=== PATIENT | female | born 1955 | race Caucasian/White ===

== ENCOUNTER → 2020-04-24 | Outpatient (CLI) | payer OTHER | END | disposition home or self-care (01) | LOC: PLD 09:43 → LAB SHORT 09:43 | DX: N90.4 Leukoplakia of vulva (principal) | CPT/HCPCS: 88305; 88312 ==

== ENCOUNTER → 2020-05-28 | Outpatient (CLI) | payer OTHER | END | disposition home or self-care (01) | LOC: LAB EV 11:35 → LAB SHORT 11:35 | DX: N39.41 Urge incontinence (principal) | CPT/HCPCS: 87086 ==

== ENCOUNTER 2020-12-03 10:23 | Day surgery (SDC) | payer OTHER ==
[~2020-12-03] VITALS: Ht 157.5 cm; Wt 70.9 kg
[~2020-12-03 10:23] MED LIST: CLOP75 PO; POTA10T PO
--- NOTE | 2020-12-03 12:14 | NUR ---
12/03/20 1214 Deidre Lechuga C/O RIGHT HAND AREA PAIN WHERE IV ATTEMPT WAS. PT. VERBALIZES TOLERABLE. "JUST NEEDLE PAIN."
== END 2020-12-03 13:18 | disposition home or self-care (01) ==
LOC: ORSCSDS 10:23
PROVIDERS: Internal Medicine Gastroenterology
PROC: 0DBN8ZX Excision of Sigmoid Colon, Via Natural or Artificial Opening Endoscopic, Diagnostic (ICD-10-PCS; principal; 2020-12-03 11:45)
PROC: 0DBH8ZX Excision of Cecum, Via Natural or Artificial Opening Endoscopic, Diagnostic (ICD-10-PCS; principal; 2020-12-03 11:45)
PROC: 0DBK8ZX Excision of Ascending Colon, Via Natural or Artificial Opening Endoscopic, Diagnostic (ICD-10-PCS; principal; 2020-12-03 11:45)
DX: R19.5 Other fecal abnormalities (principal); D12.0 Benign neoplasm of cecum; D12.2 Benign neoplasm of ascending colon; D12.5 Benign neoplasm of sigmoid colon; K57.30 Diverticulosis of large intestine without perforation or abscess without bleeding; K64.1 Second degree hemorrhoids; I10 Essential (primary) hypertension; E11.9 Type 2 diabetes mellitus without complications; E03.9 Hypothyroidism, unspecified; Z79.84 Long term (current) use of oral hypoglycemic drugs; Z79.899 Other long term (current) drug therapy; I25.10 Atherosclerotic heart disease of native coronary artery without angina pectoris; E78.5 Hyperlipidemia, unspecified; Z79.01 Long term (current) use of anticoagulants
CPT/HCPCS: 88305; J2704; J7120

== ENCOUNTER 2020-12-10 14:43 | Inpatient (IN) | payer OTHER, MEDICARE ==
[~2020-12-10] VITALS: Ht 157.5 cm; Wt 73.0 kg
[2020-12-10 15:37] LABS: BASOPHILS ABSOLUTE AUTO 0.05 K/mm3 (0.00-0.23); BASOPHILS PERCENT AUTO 1 % (0-2); EOSINOPHILS ABSOLUTE AUTO 0.24 K/mm3 (0.00-0.68); EOSINOPHILS PERCENT AUTO 4 % (0-6); Hematocrit 39.8 % (33.0-51.0); Hemoglobin 13.6 g/dL (11.5-16.0); IMMATURE GRAN ABSOLUTE AUTO 0.02 K/mm3 (0.00-0.10); IMMATURE GRAN PERCENT AUTO 0 % (0-1); LYMPHOCYTES ABSOLUTE AUTO 1.68 K/mm3 (0.84-5.20); LYMPHOCYTES PERCENT AUTO 28 % (21-46); MONOCYTES ABSOLUTE AUTO 1.04 K/mm3 (0.16-1.47); MONOCYTES PERCENT AUTO 17 % (4-13); Mean Corpuscular HGB 29.6 pg (26.0-34.0); Mean Corpuscular HGB Conc 34.2 g/dL (31.5-36.5); Mean Corpuscular Volume 87 fL (80-100); Mean Platelet Volume 10.9 fL (9.1-12.4); NEUTROPHILS ABSOLUTE AUTO 3.05 K/mm3 (1.96-9.15); NEUTROPHILS PERCENT AUTO 50 % (41-73); Platelet Count 220 K/mm3 (150-400); RDW Coefficient Variation 11.9 % (11.7-14.2); RDW Standard Deviation 37.2 fL (35.1-46.3); White Blood Cell Count 6.08 K/mm3 (4.00-11.30)
[2020-12-10 15:57] LABS: Alanine Aminotransfer (ALT/SGP 42 U/L (12-78); Albumin, Blood 3.5 g/dL (3.4-5.0); Albumin/Globulin Ratio 0.9 (0.8-1.8); Alk Phos 88 U/L (50-136); Anion Gap 5 mmol/L (6-16); Aspartate Aminotrans (AST/SGOT 32 U/L (12-37); Bilirubin, Total 0.4 mg/dL (0.1-1.0); Blood Urea Nitrogen 9 mg/dL (8-24); Bun/Creatinine Ratio 11.1 (12.0-20.0); CO2, Blood 27 mmol/L (21-32); Calcium, Blood 8.4 mg/dL (8.5-10.1); Chloride, Blood 108 mmol/L (98-108); Creatinine, Blood 0.81 mg/dL (0.40-1.00); Glomerular Filtration Rate >60 (60-); Glucose, Blood 95 mg/dL (70-99); Potassium, Blood 4.3 mmol/L (3.5-5.5); Sodium, Blood 140 mmol/L (136-145); Total Protein, Blood 7.5 g/dL (6.4-8.2); Troponin I 0.355 ng/mL (0.000-0.040)
[2020-12-10 17:46] LABS: International Normalized Ratio 1.01; Prothrombin Time Results 10.9 Sec (9.7-11.5)
[2020-12-10] MEDS ORDERED: METF500 PO (18:09)
[2020-12-10] MEDS ORDERED: EUTHYROX50 MCG PO (18:09)
[2020-12-10] MEDS ORDERED: XARELTO20 MG PO (18:10)
[2020-12-10] MEDS ORDERED: VENL150ER PO (18:10)
[2020-12-10] MEDS ORDERED: ATORVASTATIN CA80 M1 PO (18:10)
[2020-12-10] MEDS ORDERED: TEMOVATE15 G1 TOP (18:12)
[2020-12-10] MEDS ORDERED: METO25ER PO (18:13)
[2020-12-10] MEDS ORDERED: PANT40 PO (18:13)
[2020-12-10] MEDS ORDERED: Prinivil10 MG PO (18:14)
[2020-12-10] MEDS ORDERED: Estrace Vagin42.5 GM VAG (18:14)
[2020-12-10] MEDS ORDERED: MOTION RELIEF25 MG PO (18:14)
[2020-12-10] MEDS ORDERED: FURO20 PO (18:15)
[2020-12-10] MEDS ORDERED: VITAMIN D31000 UNI1 PO (18:45)
[2020-12-10] MEDS ORDERED: CYAN500 PO (18:45)
--- NOTE | 2020-12-10 19:36 | NUR ---
ADMISSION FROM ED PT ARRIVED TO PCU AT APPROXIMATELY 1650. BP IS SLIGHTLY ELEVATED, PT DENIES CP AND SOB AT THIS TIME. PT ARRIVED ON HEPARIN GTT WHICH WAS VERIFIED WITH CHERYL WARREN. PT WAS ABLE TO WALK INDEPENDENTLY TO THE BATHROOM UPON ARRIVAL. PT IS HAVING DINNER IN BED AT THIS TIME
[2020-12-10 23:29] LABS: CPK Creatine Kinase 160 U/L (26-193)
--- NOTE | 2020-12-11 04:01 | NUR ---
RECORDS SUPERVISOR SUMMARY PT IS AXOX4 AND CALLS APPROPRIATELY. PT HAS DENIED ANY CP OR PRESSURE THIS SHIFT. PT HAD ELEVATED BP AT START OF SHIFT W SBP IN 170'S SO HYDRALAZINE WAS GIVEN WHICH BROUGHT SBP DOWN TO 130, BP'S HAVE REMAINED STABLE 120'S/70'S. TELE HAS SHOWN SINUS HERIBERTO IN 50'S MOST OF THE SHIFT WHICH IS NORMAL PER PATIENT. PT HAS AMBULATED W NO SOB OR PAIN. HEPARIN GTT RUUNING UNINTERUPTED ALL SHIFT. REPEAT TROPONIN CAME BACK AT 0.501, PROVIDER NOTIFIED AND INSTRUCTED TO CONTINUE MONITORING. O2 SATS >92% ON RM AIR. PT NPO SINCE 0000. SLAUGHTERER RELIGIOUS RITUAL CONSULT CALLED INTO ANSWERING SERVICE. BRAD SANTOS.
[2020-12-11 05:18] LABS: BASOPHILS ABSOLUTE AUTO 0.05 K/mm3 (0.00-0.23); BASOPHILS PERCENT AUTO 1 % (0-2); EOSINOPHILS ABSOLUTE AUTO 0.27 K/mm3 (0.00-0.68); EOSINOPHILS PERCENT AUTO 5 % (0-6); Hematocrit 36.4 % (33.0-51.0); Hemoglobin 12.6 g/dL (11.5-16.0); IMMATURE GRAN ABSOLUTE AUTO 0.01 K/mm3 (0.00-0.10); IMMATURE GRAN PERCENT AUTO 0 % (0-1); LYMPHOCYTES ABSOLUTE AUTO 1.28 K/mm3 (0.84-5.20); LYMPHOCYTES PERCENT AUTO 24 % (21-46); MONOCYTES ABSOLUTE AUTO 0.88 K/mm3 (0.16-1.47); MONOCYTES PERCENT AUTO 17 % (4-13); Mean Corpuscular HGB 29.5 pg (26.0-34.0); Mean Corpuscular HGB Conc 34.6 g/dL (31.5-36.5); Mean Corpuscular Volume 85 fL (80-100); Mean Platelet Volume 10.6 fL (9.1-12.4); NEUTROPHILS ABSOLUTE AUTO 2.78 K/mm3 (1.96-9.15); NEUTROPHILS PERCENT AUTO 53 % (41-73); Platelet Count 209 K/mm3 (150-400); RDW Coefficient Variation 11.8 % (11.7-14.2); RDW Standard Deviation 36.5 fL (35.1-46.3); Red Blood Cell Count 4.27 M/mm3 (3.80-5.20); White Blood Cell Count 5.27 K/mm3 (4.00-11.30)
[2020-12-11 07:57] LABS: Troponin I 0.566 ng/mL (0.000-0.040)
--- NOTE | 2020-12-11 08:16 | NUR ---
HEPARIN GTT HEPARIN WAS TURNED OFF AT 0815, PHARMACY NOTIFIED. PT IS PREPARING FOR ANGIOGRAM LATER TODAY 12/11/20. CONSENT SIGNED
[2020-12-11 09:58] LABS: SARS-Cov-2 (COVID-19) PCR, MMC NEGATIVE (NEGATIVE)
--- NOTE | 2020-12-11 10:13 | NUR ---
Echocardiogram completed.
--- NOTE | 2020-12-11 11:29 | NUR ---
HEART CENTER PT LEFT FOR HEART CENTER AT APPROXIMATELY 1015. PT WAS ESCORTED VIA BED BY RN Juancho GRAVES AND Avelino CYR. DR. CHAVIRA WANTED RECORDS FROM [facility] IN [place] REGARDING PT'S PREVIOUS BYPASS, I HAVE SENT THE REQUEST AND CALLED MULTIPLE TIMES BUT HAVE NOT HAD RECORDS COME THROUGH.
--- NOTE | 2020-12-11 12:05 | NUR ---
RETURN FROM ENVIRONMENTAL ATTORNEY PT CAME BACK TO PCU AT APPROXIMATELY 1208. PT HAS TR BAND IN PLACE, NO INTERVENTIONS OR STENTS WERE PLACED TODAY. NO DRAINAGE OR HEMATOMA AT THE SITE, PLAN IS MEDICAL MANAGEMENT
--- NOTE | 2020-12-11 13:10 | NUR ---
TR BAND PT HAS TR BAND IN PLACE WITH 10ML AIR. NO DRAINAGE, NO HEMATOMA, PT HAS FULL SENSATION IN THE HAND AND STRONG PULSE. VS STABLE, PT REPORTS MILD HEADACHE- MEDICATED PER EMAR WITH TYLENOL
--- NOTE | 2020-12-11 13:47 | NUR ---
TR BAND TR BAND IS IN PLACE IS THE ARM BOARD. NO DRAINAGE, NO HEMATOMA, STRONG PULSE. VS STABLE, PT DENIES CHEST PAIN AT THIS TIME
--- NOTE | 2020-12-11 14:25 | NUR ---
TR BAND 3ML OF AIR REMOVED FROM THE TR BAND. NO SIGN OF HEMATOMA, STRONG RADIAL PULSE, AND FULL SENSATION IN THE HAND. NO DRAINAGE AT THIS TIME.
--- NOTE | 2020-12-11 14:52 | NUR ---
ADDITIONALLY 3ML OF AIR REMOVED FROM TR BAND. NO DRAINAGE, NO HEMATOMA, TR BAND IN PLACE, FULL SENSATION IN THE HAND AND STRONG RADIAL PULSE
--- NOTE | 2020-12-11 15:09 | NUR ---
CARE COORDINATION REFERRAL - ADMIT: 12/10/20 DISCHARGE: DX: HTN EMERGENCY CC: NATALIA LORNA CALL: RESIDENCE: HOME WITH SPOUSE CAREGIVER: APOLINAR MORALEZ, SPOUSE/PARTNER, , VINAY BARTHOLOMEW, SISTER/FAMILY MEMBER, , GOLDEN LENORA/MAGALI PLASCENCIA, COUSINS/FAMILY MEMEBERS, DX: CAD, GERD, DEPRESSIVE, HTN, SEE LIST DME: NONE CCM: REFERRAL- 2020 HOME HEALTH: NONE SUMMARY: ADMIT: 12/10/20 12/11/20- PER CHART REVIEW WITH DR. NEWBY, PT IS TO HAVE CONSULTATION WITH CARDIOLOGY FOR NSTEMI TODAY. NO D/C PLAN AT THIS TIME. -RADHA
--- NOTE | 2020-12-11 15:11 | NUR ---
TR BAND DEFLATED- LAST 4ML OF AIR REMOVED.10 ML AIR REMOVED TOTAL. NO DRAINAGE, NO HEMATOMA, NO PAIN OR SWELLING OR REDNESS AT THE SITE. TR BAND IN PLACE.
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
--- NOTE | 2020-12-11 18:42 | NUR ---
SHIFT SUMMARY PT ARRIVED BACK FROM HEART CENTER THIS MORNING. THE TR BAND HAS SINCE BEEN REMOVED, NO DRAINAGE OR SIGN OF HEMATOMA. PT DENIES CP BUT REPORTS A HEADACHE. VS STABLE, PT ON RA. PT SBA IN THE ROOM TO THE BATHROOM. PT RESTING IN HER ROOM AT THIS TIME
--- NOTE | 2020-12-12 04:35 | NUR ---
DRAPERY HEMMER AUTOMATIC SUMMARY PT HAS DENIED ANY CP OR PRESSURE THIS SHIFT. OPSITE ON R RADIAL IS C/D/I W NO S/S OF BLEEDING OR HEMATOMA AND IS PAINLESS PER PT. VITAL SIGNS ARE WNL AND STABLE. PT HAS HERIBERTO CARDIA INTO THE HIGH 40'S WHILE SLEEPING. O2 [place] >92% ON RM AIR. PT HAS HAD VERY GOOD URINE OUTPUT THIS SHIFT. WCTM.
[2020-12-12 04:39] LABS: BASOPHILS ABSOLUTE AUTO 0.03 K/mm3 (0.00-0.23); BASOPHILS PERCENT AUTO 1 % (0-2); EOSINOPHILS ABSOLUTE AUTO 0.27 K/mm3 (0.00-0.68); EOSINOPHILS PERCENT AUTO 5 % (0-6); Hematocrit 36.5 % (33.0-51.0); Hemoglobin 12.7 g/dL (11.5-16.0); IMMATURE GRAN ABSOLUTE AUTO 0.01 K/mm3 (0.00-0.10); IMMATURE GRAN PERCENT AUTO 0 % (0-1); LYMPHOCYTES ABSOLUTE AUTO 1.26 K/mm3 (0.84-5.20); LYMPHOCYTES PERCENT AUTO 25 % (21-46); MONOCYTES ABSOLUTE AUTO 0.93 K/mm3 (0.16-1.47); MONOCYTES PERCENT AUTO 18 % (4-13); Mean Corpuscular HGB 29.9 pg (26.0-34.0); Mean Corpuscular HGB Conc 34.8 g/dL (31.5-36.5); Mean Corpuscular Volume 86 fL (80-100); Mean Platelet Volume 10.9 fL (9.1-12.4); NEUTROPHILS ABSOLUTE AUTO 2.61 K/mm3 (1.96-9.15); NEUTROPHILS PERCENT AUTO 51 % (41-73); Platelet Count 200 K/mm3 (150-400); RDW Coefficient Variation 11.8 % (11.7-14.2); RDW Standard Deviation 36.7 fL (35.1-46.3); Red Blood Cell Count 4.25 M/mm3 (3.80-5.20); White Blood Cell Count 5.11 K/mm3 (4.00-11.30)
[2020-12-12 05:09] LABS: Thyroid Stimulating Hormone 0.397 uIU/mL (0.360-4.800); Troponin I 0.472 ng/mL (0.000-0.040)
[2020-12-12 05:10] LABS: Anion Gap 5 mmol/L (6-16); Blood Urea Nitrogen 10 mg/dL (8-24); Bun/Creatinine Ratio 12.7 (12.0-20.0); CHOL/HDL RATIO 3.7; CO2, Blood 26 mmol/L (21-32); Calcium, Blood 7.9 mg/dL (8.5-10.1); Chloride, Blood 108 mmol/L (98-108); Cholesterol 122 mg/dL (50-200); Creatinine, Blood 0.79 mg/dL (0.40-1.00); Glomerular Filtration Rate >60 (60-); Glucose, Blood 105 mg/dL (70-99); HDL Cholesterol 33 mg/dL (>39); LDL/HDL RATIO 1.6; Low Density Lipoprotein Chol 54 mg/dL (0-110); Sodium, Blood 139 mmol/L (136-145); Triglycerides 174 mg/dL (30-160); Very Low Density Lipoprot Chol 34 mg/dL (6-32)
[2020-12-12] MEDS ORDERED: ASPI81CH PO (11:15)
[2020-12-12] MEDS ORDERED: CLOP75 PO (11:16)
[2020-12-12] MEDS ORDERED: NITR.4SL SL (11:16)
--- NOTE | 2020-12-12 12:48 | NUR ---
12/12/20- per chart review with Dr. Garcia, pt is stable to d/c. Pt will be going home and her will be coming to get her. She reports that her is able to help her with any needs in the home and her sister is also coming to visit and care for her. Pt reports that her pharmacy is [email or web address]. She reports no DME needs and has no stairs in her home. Pt did make a complaint regarding a call she placed to the clinic on the day she was admitted. Put in case note to front maker. -kojo
--- NOTE | 2020-12-12 12:50 | NUR ---
DISCHARGE INFORMATION REVIEWED WITH PT AND HER INCLUDING NEW PRESCRIPTIONS, FOLLOW UP APPOINTMENTS AND RADIAL SITE AFTER CARE. BOTH PT AND HER EXPRESS UNDERSTANDING AND HAVE NO QUESTIONS AT THIS TIME. IV REMOVED. ALL BELONGINGS SENT HOME WITH PT. NO FURTHER DISCHARGE NEEDS IDENTIFIED AT THIS TIME.
== END 2020-12-12 12:57 | disposition home or self-care (01) | DRG 281 ==
LOC: ER 14:43 → PCU 14:44
PROVIDERS: Emergency Medicine; Internal Medicine Cardiovascular Disease; ADMIT Internal Medicine
PROC: B2131ZZ Fluoroscopy of Multiple Coronary Artery Bypass Grafts using Low Osmolar Contrast (ICD-10-PCS; principal; 2020-12-11)
PROC: B2181ZZ Fluoroscopy of Left Internal Mammary Bypass Graft using Low Osmolar Contrast (ICD-10-PCS; 2020-12-11)
PROC: B2111ZZ Fluoroscopy of Multiple Coronary Arteries using Low Osmolar Contrast (ICD-10-PCS; 2020-12-11)
DX: I97.190 Other postprocedural cardiac functional disturbances following cardiac surgery (principal); I21.A9 Other myocardial infarction type; T82.218A Other mechanical complication of coronary artery bypass graft, initial encounter; I25.719 Atherosclerosis of autologous vein coronary artery bypass graft(s) with unspecified angina pectoris; I25.10 Atherosclerotic heart disease of native coronary artery without angina pectoris; E78.5 Hyperlipidemia, unspecified; I10 Essential (primary) hypertension; I16.0 Hypertensive urgency; E11.9 Type 2 diabetes mellitus without complications; Z20.822 Contact with and (suspected) exposure to COVID-19; I25.5 Ischemic cardiomyopathy; E66.9 Obesity, unspecified; K21.9 Gastro-esophageal reflux disease without esophagitis; E03.9 Hypothyroidism, unspecified; Z86.711 Personal history of pulmonary embolism; Z95.1 Presence of aortocoronary bypass graft; Z86.010 Personal history of colon polyps; Z98.890 Other specified postprocedural states; Z68.28 Body mass index [BMI] 28.0-28.9, adult; Z95.820 Peripheral vascular angioplasty status with implants and grafts; Y83.2 Surgical operation with anastomosis, bypass or graft as the cause of abnormal reaction of the patient, or of later complication, without mention of misadventure at the time of the procedure
CPT/HCPCS: 36415; 71045; 76937; 80048; 80053; 80061; 82550; 83036; 83690; 84443; 84484; 85025; 85610; 85730; 86141; 86850; 86900; 86901; 93005; 93010; 93306; 93459; 94762; 96375; 96376; 99152; 99153; 99285-25; A9270; C1769; C1894; G0378; J0360; J1644; J2250; J3010; J7030; J7050; Q9967; U0004

== ENCOUNTER → 2021-05-08 | Outpatient (CLI) | payer OTHER ==
[~2021-05-08] MED LIST changes: +ASPI81CH PO; +ATORVASTATIN CA80 M1 PO; +CYAN500 PO; +EUTHYROX50 MCG PO; +Estrace Vagin42.5 GM VAG; +FURO20 PO; +METF500 PO; +METO25ER PO; +MOTION RELIEF25 MG PO; +NITR.4SL SL; +PANT40 PO; +Prinivil10 MG PO; +TEMOVATE15 G1 TOP; +VENL150ER PO; +VITAMIN D31000 UNI1 PO; +XARELTO20 MG PO
== END | disposition home or self-care (01) ==
LOC: LAB 13:35 → LAB SHORT 13:35
DX: N90.89 Other specified noninflammatory disorders of vulva and perineum (principal)
CPT/HCPCS: 88305

== ENCOUNTER → 2022-01-01 | Outpatient (CLI) | payer OTHER | END | disposition home or self-care (01) | LOC: PLD 11:37 → LAB SHORT 11:37 | DX: L30.8 Other specified dermatitis (principal) | CPT/HCPCS: 88305; 88312 ==

== ENCOUNTER → 2024-01-01 | Outpatient (CLI) | payer OTHER ==
[2024-01-01 16:13] LABS: BASOPHILS ABSOLUTE AUTO 0.08 K/mm3 (0.00-0.23); BASOPHILS PERCENT AUTO 1 % (0-2); EOSINOPHILS ABSOLUTE AUTO 0.23 K/mm3 (0.00-0.68); EOSINOPHILS PERCENT AUTO 3 % (0-6); Hematocrit 38.8 % (33.0-51.0); Hemoglobin 13.6 g/dL (11.5-16.0); IMMATURE GRAN ABSOLUTE AUTO 0.02 K/mm3 (0.00-0.10); IMMATURE GRAN PERCENT AUTO 0 % (0-1); LYMPHOCYTES ABSOLUTE AUTO 1.89 K/mm3 (0.84-5.20); LYMPHOCYTES PERCENT AUTO 20 % (21-46); MONOCYTES ABSOLUTE AUTO 1.32 K/mm3 (0.16-1.47); MONOCYTES PERCENT AUTO 14 % (4-13); Mean Corpuscular HGB 30.6 pg (26.0-34.0); Mean Corpuscular HGB Conc 35.1 g/dL (31.5-36.5); Mean Corpuscular Volume 87 fL (80-100); NEUTROPHILS ABSOLUTE AUTO 5.82 K/mm3 (1.96-9.15); NEUTROPHILS PERCENT AUTO 62 % (41-73); Platelet Count 190 K/mm3 (150-400); RDW Coefficient Variation 11.7 % (11.7-14.2); RDW Standard Deviation 37.2 fL (35.1-46.3); Red Blood Cell Count 4.45 M/mm3 (3.80-5.20); White Blood Cell Count 9.36 K/mm3 (4.00-11.30)
[2024-01-01 16:15] LABS: Bun/Creatinine Ratio 14.9 (12.0-20.0); Calcium, Blood 8.5 mg/dL (8.5-10.1); Creatinine, Blood 0.74 mg/dL (0.40-1.00); Potassium, Blood 4.1 mmol/L (3.5-5.5)
== END ==
LOC: LAB SHORT 16:06 → LAB 16:06
PROVIDERS: Physician Assistant Medical
DX: R10.32 Left lower quadrant pain (principal)
CPT/HCPCS: 80048; 85025

== ENCOUNTER → 2024-04-05 | Outpatient (CLI) | payer OTHER ==
[2024-04-05 16:27] LABS: Bacterial Vaginosis PCR Negative (NEGATIVE); Candida glabrata-krusei, PCR NOT DETECTED (NOT DETECT)
[2024-04-05 16:35] LABS: Candida Group, PCR DETECTED (NOT DETECT)
== END ==
LOC: LAB 12:44 → LAB SHORT 12:44
PROVIDERS: Obstetrics & Gynecology
DX: N89.8 Other specified noninflammatory disorders of vagina (principal)
CPT/HCPCS: 87481; 87661; 87801

== ENCOUNTER → 2024-04-05 | Outpatient (CLI) | payer OTHER | LOC: LAB SHORT 15:04 → LAB 15:04 | DX: L90.0 Lichen sclerosus et atrophicus (principal) | CPT/HCPCS: 88305; 88312 ==

== ENCOUNTER → 2024-06-26 | Outpatient (CLI) | payer OTHER ==
[2024-06-26 11:21] LABS: Hematocrit 40.5 % (33.0-51.0); Hemoglobin 13.8 g/dL (11.5-16.0); Mean Corpuscular HGB 29.7 pg (26.0-34.0); Mean Corpuscular HGB Conc 34.1 g/dL (31.5-36.5); Mean Corpuscular Volume 87 fL (80-100); Red Blood Cell Count 4.65 M/mm3 (3.80-5.20); White Blood Cell Count 15.42 K/mm3 (4.00-11.30)
[2024-06-26 11:22] LABS: BASOPHILS PERCENT AUTO 0 % (0-2); EOSINOPHILS PERCENT AUTO 1 % (0-6); IMMATURE GRAN PERCENT AUTO 0 % (0-1); LYMPHOCYTES PERCENT AUTO 4 % (21-46); MONOCYTES PERCENT AUTO 10 % (4-13); Mean Platelet Volume 10.6 fL (9.1-12.4); NEUTROPHILS PERCENT AUTO 85 % (41-73); Platelet Count 218 K/mm3 (150-400)
[2024-06-26 11:40] LABS: BASOPHILS ABSOLUTE AUTO 0.05 K/mm3 (0.00-0.23); EOSINOPHILS ABSOLUTE AUTO 0.11 K/mm3 (0.00-0.68); IMMATURE GRAN ABSOLUTE AUTO 0.05 K/mm3 (0.00-0.10); MONOCYTES ABSOLUTE AUTO 1.58 K/mm3 (0.16-1.47); NEUTROPHILS ABSOLUTE AUTO 13.03 K/mm3 (1.96-9.15); RDW Standard Deviation 38.1 fL (35.1-46.3)
[2024-06-26 11:52] LABS: Albumin, Blood 3.8 g/dL (3.4-5.0); Albumin/Globulin Ratio 0.9 (0.8-1.8); Bilirubin, Total 1.5 mg/dL (0.1-1.0); Bun/Creatinine Ratio 11.1 (12.0-20.0); Calcium, Blood 8.8 mg/dL (8.5-10.1); Creatinine, Blood 0.9 mg/dL (0.40-1.00); Globulin, Blood 4.4 g/dL (2.2-4.0); Potassium, Blood 3.8 mmol/L (3.5-5.5); Total Protein, Blood 8.2 g/dL (6.4-8.2)
== END ==
LOC: LAB 11:08 → LAB SHORT 11:08
PROVIDERS: Physician Assistant
DX: R10.9 Unspecified abdominal pain (principal)
CPT/HCPCS: 80053; 83690; 85025

== ENCOUNTER → 2024-06-27 | Outpatient (CLI) | payer OTHER ==
[2024-06-27 12:15] LABS: BASOPHILS ABSOLUTE AUTO 0.04 K/mm3 (0.00-0.23); BASOPHILS PERCENT AUTO 1 % (0-2); EOSINOPHILS ABSOLUTE AUTO 0.29 K/mm3 (0.00-0.68); EOSINOPHILS PERCENT AUTO 6 % (0-6); IMMATURE GRAN ABSOLUTE AUTO 0.02 K/mm3 (0.00-0.10); IMMATURE GRAN PERCENT AUTO 0 % (0-1); LYMPHOCYTES ABSOLUTE AUTO 1.02 K/mm3 (0.84-5.20); LYMPHOCYTES PERCENT AUTO 22 % (21-46); MONOCYTES ABSOLUTE AUTO 0.91 K/mm3 (0.16-1.47); MONOCYTES PERCENT AUTO 19 % (4-13); Mean Corpuscular HGB 30.1 pg (26.0-34.0); Mean Corpuscular HGB Conc 34.2 g/dL (31.5-36.5); Mean Corpuscular Volume 88 fL (80-100); NEUTROPHILS ABSOLUTE AUTO 2.46 K/mm3 (1.96-9.15); NEUTROPHILS PERCENT AUTO 52 % (41-73); Platelet Count 184 K/mm3 (150-400); RDW Coefficient Variation 12.1 % (11.7-14.2); RDW Standard Deviation 38.9 fL (35.1-46.3); Red Blood Cell Count 4.32 M/mm3 (3.80-5.20); White Blood Cell Count 4.74 K/mm3 (4.00-11.30)
== END | disposition home or self-care (01) ==
LOC: LAB SHORT 12:09 → LAB 12:09
PROVIDERS: Physician Assistant
DX: K80.80 Other cholelithiasis without obstruction (principal)
CPT/HCPCS: 85025

== ENCOUNTER → 2024-11-16 | Outpatient (CLI) | payer OTHER ==
[~2024-11-16] MED LIST changes: +Amlodipine Bes2.5 MG PO; +FAMO20 PO; +LASIX20 M2 PO; +LISI20 PO; +MAGNESIUM PO; +MECL25 PO; +MILK THISTLE PO; -Prinivil10 MG PO; +SERT50 PO; +TURMERIC CURCU1 EACH; +VOLTAREN ARTHRI20 GM TOP; +Vitamin B Comple1 EA PO; +Vitamin C100 M1 PO; +ZINC GLYCINATE PO
[2024-11-16 09:37] LABS: BASOPHILS ABSOLUTE AUTO 0.06 K/mm3 (0.00-0.23); BASOPHILS PERCENT AUTO 1 % (0-2); EOSINOPHILS ABSOLUTE AUTO 0.19 K/mm3 (0.00-0.68); EOSINOPHILS PERCENT AUTO 3 % (0-6); Hematocrit 37.5 % (33.0-51.0); Hemoglobin 12.8 g/dL (11.5-16.0); IMMATURE GRAN ABSOLUTE AUTO 0.02 K/mm3 (0.00-0.10); IMMATURE GRAN PERCENT AUTO 0 % (0-1); LYMPHOCYTES ABSOLUTE AUTO 1.67 K/mm3 (0.84-5.20); LYMPHOCYTES PERCENT AUTO 29 % (21-46); MONOCYTES PERCENT AUTO 12 % (4-13); Mean Corpuscular HGB 30.1 pg (26.0-34.0); Mean Corpuscular HGB Conc 34.1 g/dL (31.5-36.5); Mean Corpuscular Volume 88 fL (80-100); Mean Platelet Volume 9.9 fL (9.1-12.4); NEUTROPHILS ABSOLUTE AUTO 3.06 K/mm3 (1.96-9.15); NEUTROPHILS PERCENT AUTO 54 % (41-73); Platelet Count 225 K/mm3 (150-400); RDW Coefficient Variation 12.2 % (11.7-14.2); RDW Standard Deviation 39.3 fL (35.1-46.3); Red Blood Cell Count 4.25 M/mm3 (3.80-5.20)
[2024-11-16 09:55] LABS: Albumin, Blood 3.6 g/dL (3.4-5.0); Albumin/Globulin Ratio 0.9 (0.8-1.8); Bilirubin, Total 0.5 mg/dL (0.1-1.0); Bun/Creatinine Ratio 12.8 (12.0-20.0); Calcium, Blood 8.6 mg/dL (8.5-10.1); Creatinine, Blood 0.94 mg/dL (0.40-1.00); Potassium, Blood 4.1 mmol/L (3.5-5.5); Total Protein, Blood 7.6 g/dL (6.4-8.2)
== END | disposition home or self-care (01) ==
LOC: LAB 09:33 → LAB SHORT 09:33
PROVIDERS: Physician Assistant
DX: R10.9 Unspecified abdominal pain (principal)
CPT/HCPCS: 80053; 83690; 85025

== ENCOUNTER → 2024-11-16 | Outpatient (CLI) | payer OTHER ==
[2024-11-16 13:16] LABS: Bacterial Vaginosis PCR Negative (NEGATIVE); Candida Group, PCR NOT DETECTED (NOT DETECT); Candida glabrata-krusei, PCR NOT DETECTED (NOT DETECT)
== END | disposition home or self-care (01) ==
LOC: LAB 10:19 → LAB SHORT 10:19
PROVIDERS: Physician Assistant
DX: R10.9 Unspecified abdominal pain (principal)
CPT/HCPCS: 81515

== ENCOUNTER 2024-11-29 07:43 | Day surgery (SDC) | payer OTHER ==
[~2024-11-29] VITALS: Ht 154.9 cm; Wt 68.2 kg
[2024-11-29] VITALS (10 sets, daily range): BP systolic 122–161; BP diastolic 74–86
[~2024-11-29 07:43] MED LIST changes: +CeFAZolin Sodium 2,000 MG in NS 100 ML IV SCH; +Lactated Ringer's 1,000 ML IV SCH; -TURMERIC CURCU1 EACH; +TURMERIC CURCU1 EACH PO
[2024-11-29] MEDS ORDERED: propofoL 20 ML IV ONE (07:55)
[2024-11-29] MEDS ORDERED: FentaNYL Citrate 50 MCG/ML 2 ML Injection ONE (07:55)
[2024-11-29] MEDS ORDERED: Ketorolac Tromethamine 30mg Vial ONE (07:56)
[2024-11-29] MEDS ORDERED: Rocuronium Bromide 10 MG/ML 5ML Injection IV ONE (07:56)
[2024-11-29] MEDS ORDERED: Sugammadex Sodium 200 MG/2ML SDV (100 MG/ML) ONE (07:56)
[2024-11-29] MEDS ORDERED: Dexamethasone Sod Phos 10 MG/ML 1ML VIAL ONE (07:56)
[2024-11-29] MEDS ORDERED: Ondansetron HCl 2 MG / ML 2ML Vial ONE (07:56)
[2024-11-29] MEDS ORDERED: PANTOPRAZOLE SO20 M2 PO (08:16)
[2024-11-29] MEDS ORDERED: CeFAZolin Sodium 2,000 MG VIAL ONE (08:25)
[2024-11-29] MEDS ORDERED: Bupivacaine 0.5% HCl 5 MG/ML 30MLVIAL ONE (08:40)
[2024-11-29] MEDS ORDERED: Metoclopramide HCl 5MG / ML 2ML Vial IV PRN (08:45)
[2024-11-29] MEDS ORDERED: Ondansetron HCl 2 MG / ML 2ML Vial IV PRN (08:45)
[2024-11-29] MEDS ORDERED: Lidocaine HCl 1% 5 ML SYR INJ ONE (08:45)
[2024-11-29] MEDS ORDERED: Midazolam HCl 1MG / ML 2ML Vial IV PRN (08:45)
[2024-11-29] MEDS ORDERED: FentaNYL Citrate 50 MCG/ML 2 ML Injection IV PRN ×3 (08:50)
[2024-11-29] MEDS ORDERED: HYDROmorphone HCl/Pf 1MG SYR IV PRN (08:50)
[2024-11-29] MEDS ORDERED: Bupivacaine 0.25% Epi 1:200000 30 ML Vial ONE (08:53)
--- NOTE | 2024-11-29 08:55 | NUR ---
PRESCRIPTION FOR POST-OP PAIN MEDICATION GIVEN TO PATIENT'S TO FILL PER PATIENT REQUEST.
--- NOTE | 2024-11-29 09:02 | NUR ---
PATIENT HAD EKG DONE AT DR CHAVIRA'S OFFICE 11/08/24. OBTAINED COPY VIA FAX. NO EKG DONE TODAY.
[2024-11-29] MEDS ORDERED: HYDROcodone 5-APAP 325 TAB PO PRN (10:20)
--- NOTE | 2024-11-29 11:58 | NUR ---
Discharge instructions reviewed with patient. Patient verbalizes understanding. Copy given to patient to take home. Patient States Post-Procedure ride home has been arranged. Discharged via wheelchair to private car for ride home.
== END 2024-11-29 11:55 | disposition home or self-care (01) ==
LOC: ORSCMMR 07:43 → ORD 09:00 → ORSCMMR 09:00
PROVIDERS: Surgery
PROC: 0FT44ZZ Resection of Gallbladder, Percutaneous Endoscopic Approach (ICD-10-PCS; principal; 2024-11-29 09:00)
DX: K80.10 Calculus of gallbladder with chronic cholecystitis without obstruction (principal); I10 Essential (primary) hypertension; I25.10 Atherosclerotic heart disease of native coronary artery without angina pectoris; E11.9 Type 2 diabetes mellitus without complications; E03.9 Hypothyroidism, unspecified; I25.2 Old myocardial infarction; Z86.711 Personal history of pulmonary embolism; Z79.01 Long term (current) use of anticoagulants; Z79.02 Long term (current) use of antithrombotics/antiplatelets; E78.5 Hyperlipidemia, unspecified; Z79.899 Other long term (current) drug therapy; Z79.84 Long term (current) use of oral hypoglycemic drugs
CPT/HCPCS: 82947; 88304; A9270; C1729; J0690; J1100; J1885; J2250; J2405; J2704; J3010; J7120

== ENCOUNTER 2025-05-01 13:58 | Day surgery (SDC) | payer OTHER ==
[~2025-05-01] VITALS: Ht 157.5 cm; Wt 66.7 kg
[~2025-05-01 13:58] MED LIST changes: +ARTHRITIS PAIN150 GM TOP; -CeFAZolin Sodium 2,000 MG in NS 100 ML IV SCH; +Estrace Vagin42.5 GM; -Lactated Ringer's 1,000 ML IV SCH; +Milk Thistle175 M1 PO; +PANTOPRAZOLE SO20 M2 PO; +VITAMIN B121000 MCG PO
[2025-05-01 15:02] VITALS: BP 119/79
--- NOTE | 2025-05-01 15:39 | NUR ---
Ambulatory in Day Surgery. Lungs clear T/O to Auscultation. History, Chart, Medications and Allergies reviewed before start of procedure. Patient confirms NPO status and agrees with scheduled surgery. Pre-Op teaching done. Pt verbalizes understanding. Patient States Post-Procedure ride home has been arranged.
--- NOTE | 2025-05-01 16:53 | NUR ---
05/01/25 Lakisha Aguilar CONFIRMED AND REVIEWED H&P, MEDCICATIONS, ALLERGIES, MEDICAL HISTORY, RESPIRATORY HISTORY, VITAL SIGNS, 3-LEAD EKG, CONSENTS, AND PHYSICIAN ORDERS. PATIENT CONFIRMS NPO STATUS AND AGREES WITH SCHEDULED PROCEDURE. MONITOR INTACT WITH CONTINUOUS PULSE OXIMETRY, CAPNOGRAPHY, 3-LEAD EKG, INTERMITTENT BP. SUPPLEMENTAL O2 TO BE TITRATED THROUGHOUT PROCEDURE TO MAINTAIN O2 SATURATION ABOVE 90%. PATIENT DETERMINED TO BE ASA APPROPRIATE FOR MAC PER .
[2025-05-01 17:36] VITALS: BP 101/75
--- NOTE | 2025-05-01 17:37 | NUR ---
OFFERED FLUIDS, TOW. HOB UP.
--- NOTE | 2025-05-01 17:44 | NUR ---
Educated pt per discharge instructions. offered fluids tow. Discharge instructions reviewed with patient. Patient verbalizes understanding. Copy given to patient to take home. Discharged via wheelchair to private car for ride home.
== END 2025-05-01 17:46 | disposition home or self-care (01) ==
LOC: ORSCMMR 13:58 → ORD 15:30 → ORSCMMR 17:46
PROVIDERS: Family Medicine
PROC: 0DBP8ZX Excision of Rectum, Via Natural or Artificial Opening Endoscopic, Diagnostic (ICD-10-PCS; principal; 2025-05-01 15:30)
DX: Z12.11 Encounter for screening for malignant neoplasm of colon (principal); Z86.0100 Personal history of colon polyps, unspecified; K62.1 Rectal polyp; K57.30 Diverticulosis of large intestine without perforation or abscess without bleeding; K64.0 First degree hemorrhoids; I10 Essential (primary) hypertension; G30.9 Alzheimer's disease, unspecified; E03.9 Hypothyroidism, unspecified; E78.2 Mixed hyperlipidemia; E11.42 Type 2 diabetes mellitus with diabetic polyneuropathy; Z79.899 Other long term (current) drug therapy; F41.9 Anxiety disorder, unspecified; F32.A Depression, unspecified; Z79.84 Long term (current) use of oral hypoglycemic drugs; Z79.02 Long term (current) use of antithrombotics/antiplatelets
CPT/HCPCS: 82947; 88305; J2704; J7120